=== PATIENT | male | born 1980 | race Hispanic/Latino ===

== ENCOUNTER 2018-09-11 20:26 | Emergency (ER) | payer OTHER ==
[2018-09-11] MEDS ORDERED: LIDOCAINE HCL-MPF 1% 2ML VIAL ONE (20:46)
[2018-09-11] MEDS ORDERED: CEFTRIAXONE SODIUM 1 GM ONE (20:46)
[2018-09-11] MEDS ORDERED: ACETAMINOPHEN 325 MG TAB ONE (20:46)
== END 2018-09-11 21:18 | disposition home or self-care (01) ==
LOC: EDH 20:26
DX: S91.115A Laceration without foreign body of left lesser toe(s) without damage to nail, initial encounter (principal); L03.032 Cellulitis of left toe; W26.8XXA Contact with other sharp object(s), not elsewhere classified, initial encounter; Y93.89 Activity, other specified; Y92.89 Other specified places as the place of occurrence of the external cause; Y99.8 Other external cause status
CPT/HCPCS: 96372; 99283; J0696; J3490